=== PATIENT | female | born 1945 | race Caucasian/White ===

== ENCOUNTER → 2017-02-23 | Outpatient (CLI) | payer MEDICARE ==
[~2017-02-23] MED LIST: BENAZEPRIL PO; BENAZEPRIL/HCTZ PO; CIPRO PO; FLAGYL PO; GLUCOPHAGE500 M1 PO; HCTZ PO; IBUPROFEN800 MG PO; LIPITOR PO; LOTENSIN HCT 101 TAB PO; LOVENOX SUBQ; METFORMIN PO; NORCO 5/325 TAB1 TAB PO; SIMVASTATIN40 MG PO; VICODIN 5/1 TAB 5/50 PO; ZOCOR PO; [UNRECOGNIZED DRUG - OTHER] PO
--- NOTE | ~2017-02-23 | BD1 ---
[facility] A Service of [facility] & [facility] RADIOLOGY TEXT RESULTS PATIENT: ALEXANDRIA BARRERA LOCATION: [facility] : 43 UNIT #: [id number] AGE: [address]: Brigitte Lanier MD SEX: F ORDER DR: [id number] [address] [address] [id number] O MR#: [id number] Acc #: [id number] NAME: ALEXANDRIA BARRERA : 1945 SEX: F STUDY DATE/TIME: 02/23/2017 8:09 UNIT: [facility] ROOM: STUDY DESCRIPTION: Dexa Bone Dens 1+ Site Attending Physician: Brigitte Lanier M.D. Referring Physician: Brigitte Lanier M.D. Ordering Physician: Brigitte Lanier M.D. Primary Care Physician: Brigitte Lanier M.D. MEDICAL IMAGING REPORT This report is preliminary unless electronic signature is present. EXAM DXA scan, 02/23/2017. HISTORY Status post menopause with no hormone replacement therapy. Osteopenia. FINDINGS Bone mineral density in the lumbar spine from L1-L4 is 1.007 g/cm2 which is 1.4 standard deviations below the mean when compared to the young adult reference population which is characteristic of osteopenia. This is 0.2 standard deviations above the mean when compared to the age-matched population. Compared with 04/23/2015, there has been an increase in bone mineral density in the lumbar spine of 7.9%. Bone mineral density in the right femoral neck was 0.839 g/cm2 which is 1.4 standard deviations below the mean when compared to the young adult reference population which is characteristic of osteopenia. This is 0.3 standard deviations above the mean when compared to the age-matched population. Compared with 04/23/2015, there has been a decrease in bone mineral density in the right hip of 1%. Bone mineral density in the distal left forearm was 0.852 g/cm2 which is 0.4 standard deviations below the mean when compared to the young adult reference population which is within the range of normal. This is 1.7 standard deviations above the mean when compared to the age-matched population. IMPRESSION Bone mineral density in the lumbar spine and right hip characteristic of osteopenia and within the left forearm within the range of normal. Compared with 04/23/2015, there has been an increase in bone mineral density in the lumbar spine and the right hip. [facility] A Service of [facility] RADIOLOGY TEXT RESULTS PATIENT: ALEXANDRIA BARRERA LOCATION: [facility] : 43 UNIT #: [id number] AGE: [address]: Brigitte Lanier MD SEX: F ORDER DR: Dictated by... Jose Ramey M.D. THIS IS AN ELECTRONICALLY VERIFIED REPORT Jose Ramey M.D. at 02/23/2017 4:52 PM MILY/mireille TD: 02/23/2017 12:37 JOB #: [id number] MEDICAL IMAGING REPORT Page 1 of 1
--- NOTE | ~2017-02-23 | MY11 ---
[facility] A Service [facility] RADIOLOGY TEXT RESULTS PATIENT: ALEXANDRIA BARRERA LOCATION: [facility] : 43 UNIT #: [id number] AGE: [address]: Brigitte Lanier MD SEX: F ORDER DR: [id number] [address] [address] [id number] O MR#: [id number] Acc #: [id number] NAME: ALEXANDRIA BARRERA : 1945 SEX: F STUDY DATE/TIME: 02/23/2017 8:49 UNIT: SRA ROOM: STUDY DESCRIPTION: MY Mammogram Screening Dig Bob Attending Physician: Brigitte Lanier M.D. Referring Physician: Brigitte Lanier M.D. Ordering Physician: Brigitte Lanier M.D. Primary Care Physician: Brigitte Lanier M.D. MEDICAL IMAGING REPORT This report is preliminary unless electronic signature is present. EXAM Digital screening mammogram, 02/23/2017, [facility] HISTORY 71-year-old woman with no risk elevation. Annual screening. COMPARISON Comparison mammograms date to 07/24/2008, with most recent 06/14/2016. FINDINGS Digital imaging of each breast was completed utilizing standard craniocaudal and mediolateral-oblique projections. Review and interpretation of digital mammograms include a second review in conjunction with FDA-approved CAD device. There is an overall increase in the parenchymal presentation bilaterally with a generalized fibronodular pattern in each breast. There are no breast masses and I see no asymmetry in the parenchymal presentation. There are no suspicious microcalcifications and I see no architectural disturbance. IMPRESSION Benign mammogram. One-year followup recommended. Patients over the age of 40 are entered into a reminder system with target due date for the next mammogram. A result letter will also be sent to the patient. BIRADS: 2 Benign finding Dictated by... [facility] A Service [facility] RADIOLOGY TEXT RESULTS PATIENT: ALEXANDRIA BARRERA LOCATION: [facility] : 43 UNIT #: [id number] AGE: [address]: Brigitte Lanier MD SEX: F ORDER DR: Jero Schneider M.D. THIS IS AN ELECTRONICALLY VERIFIED REPORT Jero Schneider M.D. at 02/23/2017 1:44 PM TIKA/chel TD: 02/23/2017 13:14 JOB #: [id number] MEDICAL IMAGING REPORT Page 1 of 1
== END | disposition home or self-care (01) ==
LOC: SRAD 08:03
DX: Z12.31 Encounter for screening mammogram for malignant neoplasm of breast (principal); Z13.820 Encounter for screening for osteoporosis
CPT/HCPCS: 77080; G0202